=== PATIENT | male | born 1980 | race Caucasian/White ===

== ENCOUNTER → 2021-06-20 | Outpatient (CLI) | payer BC ==
--- NOTE | 2021-06-20 16:22 | MR ---
EXAMINATION TYPE: MR iac wo/w con DATE OF EXAM: 06/20/2021 COMPARISON: None HISTORY: Right sided hearing loss. TECHNIQUE: Multiplanar, multisequence images of the brain and brainstem is performed without and with IV contras t, utilizing 15 mL intravenous Gadavist . FINDINGS: Diffusion weighted images demonstrate no evidence of a recent infarct or other diffusion ab normality. There is no extra-axial fluid collection or significant white matter signal abnormality, minute scattered hyperintensities in the subcortical region of the left frontal and parietal lobeson inversion recovery T2-weighted sequences measuring only 1 to 2 mm, 3-5 lesions are of questionable cl inical significance. The ventricular system and cisternal spaces are normal in size and appearance. The brain volume is age appropriate. The cerebellopontine angles show no mass. There is no abnormal enhancement or evident mass along the internal auditory canals bilaterally. Midline structures demonstrate normal morphology. The craniocervical junction appears within normal limits. Post contrast images demonstrate no abnormal enhancement. The dural venous sinuses appear pa tent. The visualized sinuses are clear and the globes are intact. Small focus of hyperintensity in th e temporal bone on the right is indeterminate but may represent some local fluid retention and mastoi d air cells, axial image 7 series 801, coronal image 10 series 401 IMPRESSION: No evident mass involving the internal auditory canals. Nonspecific white matter demyelin ation of questionable clinical significance, findings could be seen in migraine headaches, hypertensi on, vasculitis, multiple sclerosis felt to be unlikely
== END | disposition home or self-care (01) ==
LOC: RADMRIMAIN 07:30
PROVIDERS: ATTEND Otolaryngology
DX: H91.91 Unspecified hearing loss, right ear (principal)
CPT/HCPCS: 70553; A9585